=== PATIENT | male | born 1990 | race Two or more races ===

== ENCOUNTER 2024-04-07 19:01 | Emergency (ER) | payer SELFPAY ==
--- NOTE | 2024-04-07 19:02 | XRR_ITS ---
PROCEDURE INFORMATION: Exam: XR Left Hand Exam date and time: 04/07/2024 7:31 PM Age: 33 years old Clinical indication: Injury or trauma; Other: Lac to lt thumb; Laceration; Finger; Left TECHNIQUE: Imaging protocol: Radiologic exam of the left hand. Views: 3 or more views. COMPARISON: No relevant prior studies available. FINDINGS: Bones/joints: Normal. Soft tissues: Normal. XR/XR hand LT min 3V* [id number] IMPRESSION: No acute findings.
[2024-04-07 19:06] VITALS: BP 119/67; PULSE 59; TEMP 36.8; O2SAT 97; BMI 24.2
--- NOTE | 2024-04-07 22:14 | W.ED.WOUNDLC ---
HPI - Wound/Laceration General: Chief Complaint: Wound/Laceration Stated Complaint: L.hand injury Time Seen by Provider: 04/07/24 20:46 Source: patient Mode of arrival: ambulatory Limitations: language barrier History of Present Illness: Patient is a 33-year-old male who presents the emergency department with laceration to left thumb that he suffered at work. Patient reportedly got sliced by the edge of the measuring tape, bleeding controlled on arrival. Initially was seen with primary care, referred here due to concerns of tendon damage. At my time of examination patient was no longer complaining of any numbness and had no difficulty with flexion or extension of the left thumb. States his tetanus was not up-to-date. Mild pain reported. No foreign body or damage to the nailbed. Wound not reported to be significantly contaminated. Onset (ago): hour(s) Extremity Location: Left: hand (Thumb) Patient tetanus UTD: No Context: accidental Associated symptoms: Denies chills, fever(s), nausea or vomiting Related Data Previous Rx's Medication Instructions Recorded cephalexin 500 mg capsule 500 mg PO BID 7 days #14 caps 04/07/24 Allergies Allergy/AdvReac Type Severity Reaction Status Date / Time No Known Allergies Allergy Verified 04/07/24 19:11 Review of Systems General: Reports: 10 or more systems reviewed and unremarkable except in HPI and below Const: Denies: fever(s) or chills Card: Denies: chest pain Resp: Denies: dyspnea GI: Denies: abdominal pain, nausea, vomiting or diarrhea Musc: Denies: extremity pain or joint pain Skin/Breast: Reports: new lesions (Left thumb); Denies: rash, skin pain or skin tenderness Neuro: Denies: headache(s) PFSH ED PFSH: Social History Smoking and tobacco/nicotine status: never used tobacco/nicotine Physical Exam Const: COMMON NORMALS: no acute distress, average body habitus, patient oriented x3, healthy appearing, alert and well nourished EXAM LIMITATIONS: language barrier HENMT: COMMON NORMALS: normocephalic and atraumatic HEAD & SCALP: normocephalic and atraumatic Neck/C-Spine: COMMON NORMALS: full ROM, no lymphadenopathy, supple and no meningeal signs Resp: COMMON NORMALS: normal respiratory effort, No use of accessory muscles and clear to auscultation bilaterally AUSCULTATION: clear to auscultation bilaterally Cardio: COMMON NORMALS: regular rate and regular rhythm RATE: regular rate RHYTHM: regular rhythm Extremity: COMMON NORMALS: full ROM and capillary refill normal NARRATIVE EXTREMITY EXAM: There is full extension and flexion of the left thumb, opposition intact. No distal sensory changes over the left thumb appreciated at time of examination. No evidence of tendon damage or nerve impairment. Neuro: COMMON NORMALS: patient oriented x3, moves all extremities, no focal motor deficits and no sensory deficits noted SENSORIUM/ORIENTATION: Yes alert MENINGEAL SIGNS: Yes no meningeal signs Skin: COMMON NORMALS: turgor normal NARRATIVE SKIN EXAM: There is an approximately 1 cm laceration to the interdigital space between left thumb and pointer finger. No foreign body or contamination. No active bleeding. GENERAL SKIN EXAM: turgor normal Procedures Laceration Laceration 1: Site: hand Side (If applicable): left (thumb) Size (cm): 2.5 Description: linear Depth: simple, single layer Local Anesthetic: lidocaine 2% and with epi Amount of anesthesia used (mL): 3 Pre-repair: wound explored, irrigated extensively and deep structures intact Skin layer closed with: nylon Size (cm): 5-0 Number of sutures: 3 Technique: simple, interrupted Course Vital Signs: Vital signs: Vital Signs Temperature 98.3 F 04/07/24 19:06 Pulse Rate 59 L 04/07/24 19:06 Blood Pressure 119/67 04/07/24 19:06 Pulse Oximetry 97 04/07/24 19:06 Oxygen Delivery Me thod Room Air 04/07/24 19:06 MDM - Wound/Laceration Medical Decision Making X-ray was normal. No obvious tendon or nerve involvement on my examination, he had good distal sensations and good range of motion/strength. Wound was repaired, see procedure note. Was irrigated with normal saline and cleaned with chlorhexidine. Procedure tolerated well. Will start on antibiotics and wound care discussed. Return precautions given. Lab Data Radiology Impressions Hand X-Ray 04/07/24 19:02 IMPRESSION: No acute findings. All radiology interpretation(s) finalized by discharge Discharge Plan Discharge Patient Disposition: Home Clinical Impression: Laceration of left thumb Condition: Stable Prescriptions: New cephalexin 500 mg capsule 500 mg PO BID 7 Days Qty: 14 0RF Discharge Orders: Discharge ED (Routine); Ordered 04/07/24 Ordered By: Jordan Randall Patient Instructions: Finger Laceration (ED) Activity Restrictions/Additional Instructions: Sutures out in 5 to 7 days. Antibiotics as prescribed. Keep wound clean and dry, when cleaning down with warm soap and water and then dab dry afterwards. Monitor for any signs of infection return as needed. Your tetanus was updated today. Coding Level of Care Code ED Community Affairs Manager for Demetria Ayala
[2024-04-07] MEDS: tetanus-dipt-pertussis 0.5 mL SDV IM (22:28)
[2024-04-07] MEDS: lidocaine 2% INJ 20 mL 10 ML INJECTION (22:29)
[2024-04-07] MEDS: cephALEXin 500 mg Capsule PO (22:29)
== END 2024-04-07 22:30 | disposition home or self-care (01) ==
PROVIDERS: Emergency Provider Physician Assistant
DX: S61.012A Laceration without foreign body of left thumb without damage to nail, initial encounter (principal); X58.XXXA Exposure to other specified factors, initial encounter
CPT/HCPCS: 12001; 73130; 90471; 90715; 99283